=== PATIENT | male | born 1985 | race Caucasian/White ===

== ENCOUNTER 2021-07-02 11:24 | Emergency (ER) | payer OTHER ==
[~2021-07-02] VITALS: Ht 193 cm; Wt 113.4 kg
[2021-07-02] MEDS ORDERED: PROAIR HFA8.5 GM INH (11:57)
[2021-07-02] MEDS ORDERED: SYMBICORT80 MCG/4.1 INH (11:57)
[2021-07-02 12:48] VITALS: BP 134/72
[2021-07-02] MEDS ORDERED: ONDANSETRON HCL4 M2 PO (13:31)
== END 2021-07-02 13:39 | disposition home or self-care (01) ==
LOC: ER 11:24
DX: S01.511A Laceration without foreign body of lip, initial encounter (principal); S01.512A Laceration without foreign body of oral cavity, initial encounter; J45.909 Unspecified asthma, uncomplicated; Z79.51 Long term (current) use of inhaled steroids; Z79.899 Other long term (current) drug therapy; V89.2XXA Person injured in unspecified motor-vehicle accident, traffic, initial encounter; Y93.89 Activity, other specified; Y92.89 Other specified places as the place of occurrence of the external cause; Y99.8 Other external cause status